=== PATIENT | male | born 1970 | race Caucasian/White ===

== ENCOUNTER 2018-06-26 08:24 | Emergency (ER) | payer BC, OTHER ==
[2018-06-26 08:31] VITALS: BP 149/88; PULSE 88; RESP 18; TEMP 97.6
[2018-06-26] MEDS ORDERED: KETOROLAC 60 MG/2 ML VIAL IM STA (08:45)
--- NOTE | 2018-06-26 08:46 | ED ---
General Adult HPI - General Chief complaint: Back Pain/Injury Stated complaint: back injury Time Seen by Provider: 06/26/18 08:33 Source: patient, RN notes reviewed Mode of arrival: ambulatory Limitations: no limitations - History of Present Illness Initial comments: Patient 47-year-old male presented to the emergency room today with chief complaint of increased lower back pain that began 3 or 4 days ago when he was at work. He states that he was dumping a 5 gallon bucket of chemical. He states that after he did this he felt pain in the right side and lower back. He denies any lumbar radiculopathy, saddle anesthesia, bowel or bladder incontinence retention. Patient does admit that the pain is worse when he is trying to get out of bed or going from a sitting to standing position. Patient does admit that he tried anti-inflammatories at home with some relief. Patient denies any other complaints or symptoms. Patient denies any recent fever, chills , shortness of breath, chest pain, abdominal pain, nausea or vomiting, numbness or tingling, dysuria or hematuria, headaches or visual changes, or any other complaints. - Related Data Home Medications Medication Instructions Recorded Confirmed Allopurinol [Zyloprim] 100 mg PO DAILY 11/24/13 11/26/13 Previous Rx's Medication Instructions Recorded Naproxen Sodium [Anaprox Ds] 550 mg PO Q12HR #15 tab 11/24/13 Sulfamethoxazole/Trimethoprim 2 tab PO Q12H #40 tab 11/24/13 [Bactrim DS 800-160 mg] Sulfamethox-Tmp 800-160Mg [Bactrim 2 each PO Q12HR #28 tab 11/26/13 DS 800-160 mg] Cyclobenzaprine [Flexeril] 10 mg PO TID #20 tab 06/26/18 Ibuprofen [Motrin] 600 mg PO Q6HR PRN #40 day 06/26/18 Allergies Allergy/AdvReac Type Severity Reaction Status Date / Time No Known Allergies Allergy Verified 06/26/18 08:30 Review of Systems ROS Statement: Those systems with pertinent positive or pertinent negative responses have been documented in the HPI. ROS Other: All systems not noted in ROS Statement are negative. Past Medical History Additional Past Medical History / Comment(s): gouty arthritis History of Any Multi-Drug Resistant Organisms: None Reported Past Surgical History: No Surgical Hx Reported Past Psychological History: No Psychological Hx Reported Smoking Status: Current every day smoker Past Alcohol Use History: Occasional Past Drug Use History: None Reported General Exam - General Exam Comments Initial Comments: General: The patient is awake and alert, in no distress, and does not appear acutely ill. Neck: The neck is supple Cardiovascular: There is a regular rate and rhythm. No murmur, rub or gallop is appreciated. Respiratory: Lungs are clear to auscultation, respirations are non-labored, breath sounds are equal. No wheezes, stridor, rales, or rhonchi. Musculoskeletal: Normal ROM. Normal appearance of the thoracic lumbar spine with no step-off or deformity. Patient does have mild tenderness paravertebrally to the right side of the lumbar spine from L2 to L5. Strength 5 /5. Sensation intact. Pulses equal bilaterally 2+. Neurological: A&O x 3. CN II-XII intact, There are no obvious motor or sensory deficits. Coordination appears grossly intact. Speech is normal. Skin: Skin is warm and dry and no rashes or lesions are noted. Psychiatric: Cooperative, appropriate mood & affect, normal judgment. Limitations: no limitations Course Vital Signs 06/26/18 08:28 Temperature 97.6 F Pulse Rate 88 Respiratory 18 Rate Blood Pressure 149/88 O2 Sat by Pulse 98 Oximetry Medical Decision Making - Medical Decision Making 47-year-old male presenting to the emergency room today with chief complaint of right-sided lower back pain that began after lifting a 5 gallon bucket at work 3 -4 days ago. Does admit that pains been reproduced with certain movements. Patient has no bowel or bladder incontinence retention, saddle anesthesia, lumbar radiculopathy. Patient will be continued on anti-inflammatories and prescribed a muscle relaxer. He is advised that muscle relaxers may make him drowsy. Advised to follow family physician over the next week. Advised return if any symptoms increase or worsen. Disposition Clinical Impression: Acute low back pain Disposition: HOME SELF-CARE Condition: Good Instructions: Acute Low Back Pain (ED) Additional Instructions: Please use medication as discussed. Please be aware muscle relaxer may make you drowsy. Please follow-up with family doctor in the next 2 days of symptoms have not improved. Please return to emergency room if the symptoms increase or worsen or for any other concerns. Prescriptions: Cyclobenzaprine [Flexeril] 10 mg PO TID #20 tab Ibuprofen [Motrin] 600 mg PO Q6HR PRN #40 day PRN Reason: Pain Is patient prescribed a controlled substance at d/c from ED?: No Referrals: None,Stated [Primary Care Provider] - 1-2 days Time of Disposition: 08:45
== END 2018-06-26 09:05 | disposition home or self-care (01) ==
LOC: EC 08:24
DX: M54.5 Low back pain (principal); M10.9 Gout, unspecified; F17.200 Nicotine dependence, unspecified, uncomplicated; Z79.899 Other long term (current) drug therapy
CPT/HCPCS: 99283; 96372; J1885

== ENCOUNTER 2018-07-01 05:23 | Emergency (ER) | payer OTHER ==
[2018-07-01 06:03] VITALS: TEMP 97.5
--- NOTE | 2018-07-01 06:05 | ED ---
Back Pain HPI - General Chief Complaint: Back Pain/Injury Stated Complaint: Back Injury, [facility] Time Seen by Provider: 07/01/18 05:37 Source: patient Limitations: no limitations - History of Present Illness Initial Comments: is a pleasant 47-year-old male who returns to the emergency department this morning for reevaluation of back pain. Uzma was seen and evaluated last week for low back pain that began after lifting a 5 gallon bucket of chemicals at work. That time the patient was diagnosed with muscle strain he was prescribed Flexeril and Motrin and discharged home. Patient reports that he didn't work on Friday but has been back to work for 2 days he is again been lifting 5 gallon bucket of chemicals that he is required toe lift at work. He reports that his back pain has been worsening. Patient reports he has not been taking the Flexeril because it makes him tired. He has been combined with ibuprofen but doesn't feels been helping. Patient reports his back feels stiff in the morning when he wakes up, it seems to improve throughout the day but worsened with any heavy lifting. Patient reports he feels tightness down his right leg. He denies any fevers, chills, chest pain or shortness breath. Patient denies any bowel or bladder incontinence or retention. He denies any fevers, IV drug use or history of cancer. He denies any weakness or tingling in the extremities. - Related Data Home Medications Medication Instructions Recorded Confirmed Ibuprofen [Motrin Ib] 400 mg PO Q6H PRN 06/26/18 06/26/18 Previous Rx's Medication Instructions Recorded Cyclobenzaprine [Flexeril] 10 mg PO TID #20 tab 06/26/18 RX: Ibuprofen [Motrin] 600 mg PO Q6HR PRN #40 day 06/26/18 Allergies Allergy/AdvReac Type Severity Reaction Status Date / Time No Known Allergies Allergy Verified 07/01/18 05:33 Review of Systems ROS Statement: Those systems with pertinent positive or pertinent negative responses have been documented in the HPI. ROS Other: All systems not noted in ROS Statement are negative. Past Medical History Additional Past Medical History / Comment(s): gouty arthritis, History of Any Multi-Drug Resistant Organisms: None Reported Past Surgical History: No Surgical Hx Reported Past Psychological History: No Psychological Hx Reported Smoking Status: Current every day smoker Past Alcohol Use History: Occasional Past Drug Use History: None Reported General Exam - General Exam Comments Initial Comments: Physical Exam GENERAL: Patient is well-developed and well-nourished. Patient is nontoxic and well- hydrated and is in no distress. HENT: Normocephalic, Atraumatic. EYES: PERRL, EOMI PULMONARY: Unlabored respirations. No audible rales rhonchi or wheezing was noted. CARDIOVASCULAR: There is a regular rate and rhythm without any murmurs gallops or rubs. ABDOMEN: Soft and nontender with normal bowel sounds. SKIN: Skin is clear with no lesions or rashes and otherwise unremarkable. : Deferred NEUROLOGIC: Patient is alert and oriented x3. Moving all extremities spontaneously Normal patellar and Achilles reflexes bilaterally Will strength and sensation of the bilateral lower extremities MUSCULOSKELETAL: Normal extremities with adequate strength and full range of motion. No lower extremity swelling or edema. No calf tenderness. PSYCHIATRIC: Normal psychiatric evaluation. Limitations: no limitations Limitations: no limitations Course Vital Signs 07/01/18 07/01/18 05:30 05:56 Temperature 98.0 F 97.5 F L Pulse Rate 80 80 Respiratory 17 16 Rate Blood Pressure 150/87 159/105 O2 Sat by Pulse 98 97 Oximetry Medical Decision Making - Medical Decision Making Patient was seen and evaluated history was obtained from patient and signed history and physical exam are consistent with muscle strain of the lumbar spine however patient is concerned and requesting at x-ray I advised patient to x-ray will not reveal any nerve impingement or muscle tears however we will proceed with x-ray X-ray with no acute findings were discussed with the patient who expresses relief, requests a work note for 2 days work note was provided neck for Patient was encouraged to continue taking NSAIDs, continue moderate activity without any heavy lifting follow-up with primary care for referral to physical therapy as well as referral to orthopedics, patient was given Dr. Blake's contact information for follow-up. Disposition Clinical Impression: Strain of lumbar region Disposition: HOME SELF-CARE Condition: Stable Instructions: Acute Low Back Pain (ED), Chronic Back Pain (ED) Is patient prescribed a controlled substance at d/c from ED?: No Referrals: None,Stated [Primary Care Provider] - 1-2 days Tatyana Blake DO [Doctor of Osteopathic Medicine] - 1-2 days
[2018-07-01] MEDS ORDERED: KETOROLAC 30 MG/ML 1 ML VIAL IM STA (06:07)
--- NOTE | 2018-07-01 06:41 | XR ---
EXAMINATION TYPE: XR lumbar spine 2 or 3V DATE OF EXAM: 07/01/2018 COMPARISON: NONE HISTORY: Back pain TECHNIQUE: 3 views FINDINGS: The lumbar vertebra have normal alignment. Posterior elements are intact. Sacroiliac joints appear normal. IMPRESSION: Negative lumbar spine exam. No fracture.
[2018-07-01 07:03] VITALS: BP 162/82; PULSE 93; RESP 18
== END 2018-07-01 07:02 | disposition home or self-care (01) ==
LOC: EC 05:23
DX: S39.012A Strain of muscle, fascia and tendon of lower back, initial encounter (principal); F17.200 Nicotine dependence, unspecified, uncomplicated; X50.0XXA Overexertion from strenuous movement or load, initial encounter; Y92.69 Other specified industrial and construction area as the place of occurrence of the external cause; Y99.0 Civilian activity done for income or pay
CPT/HCPCS: 72100; 99283; 96372; J1885

== ENCOUNTER 2019-02-04 09:58 | Emergency (ER) | payer OTHER ==
[2019-02-04 10:01] VITALS: RESP 18
[2019-02-04] MEDS: PROPARACAINE 0.5% OPHTH DROPS 15 ML BTL LEFT EYE STA ×2 (10:13→10:16)
--- NOTE | 2019-02-04 10:25 | ED ---
Eye Problem HPI - General Chief complaint: Eye Problems Stated complaint: Eye Problems Time Seen by Provider: 02/04/19 10:04 Source: patient Mode of arrival: ambulatory Limitations: no limitations - History of Present Illness Initial comments: Patient is a 48-year-old male presenting to the emergency department with a chief complaint of eye pain. Patient reports he woke up this morning and noticed right eye discomfort and redness. Patient denies any discharge or difficulty opening his eye. Patient denies blurry vision, nausea or headaches. Patient denies pain with extraocular movements. Patient denies itchiness. Patient reports he recently went swimming in a pool. Patient denies a history of glaucoma or cataracts. Patient denies any trauma today. Patient does not wear contacts. Patient reports taking [id number] analgesics to alleviate his symptoms. - Related Data Previous Rx's Medication Instructions Recorded Polymyxin B-Trimeth Sulf Ophth 1 drops BOTH EYES Q4H #1 bottle 02/04/19 [Polytrim Opthalmic] Allergies Allergy/AdvReac Type Severity Reaction Status Date / Time No Known Allergies Allergy Verified 02/04/19 10:22 Review of Systems ROS Statement: Those systems with pertinent positive or pertinent negative responses have been documented in the HPI. ROS Other: All systems not noted in ROS Statement are negative. Past Medical History Additional Past Medical History / Comment(s): gouty arthritis, History of Any Multi-Drug Resistant Organisms: None Reported Past Surgical History: No Surgical Hx Reported Past Psychological History: No Psychological Hx Reported Smoking Status: Current every day smoker Past Alcohol Use History: Occasional Past Drug Use History: None Reported General Exam Limitations: no limitations General appearance: alert, in no apparent distress Head exam: Present: atraumatic, normocephalic, normal inspection Eye exam: Present: normal appearance, PERRL, EOMI, conjunctival injection, other (No corneal ulcers, foreign bodies or abrasions noted on fluorescence stain.). Absent: nystagmus, periorbital tenderness Pupils: Present: normal accommodation ENT exam: Present: normal exam, normal oropharynx, mucous membranes moist, TM's normal bilaterally, normal external ear exam Neck exam: Present: normal inspection, full ROM Respiratory exam: Present: normal lung sounds bilaterally Cardiovascular Exam: Present: regular rate, normal rhythm Extremities exam: Present: normal inspection, full ROM Back exam: Present: normal inspection, full ROM Neurological exam: Present: alert, oriented X3 Psychiatric exam: Present: normal affect, normal mood Skin exam: Present: warm, intact, normal color Course Vital Signs 02/04/19 10:00 Temperature 97.9 F Pulse Rate 68 Respiratory 18 Rate Blood Pressure 161/92 O2 Sat by Pulse 98 Oximetry Medical Decision Making - Medical Decision Making Patient is a 48-year-old male presents emergency Department with a chief complaint of eye pain. Patient reports recently swimming in a pool and when he woke up this morning he noticed eye discomfort and redness in his right eye. Patient denies pain with extraocular movements or blurred vision. Based on physical examination suspect the patient to have developed conjunctivitis. Although patient has no mucopurulent discharge at this time, so going to treat the patient for possible bacterial pathology. eye pressure using to tonometer is 19 mmHg. Patient will be discharged with opthalamic antibiotic drops. Patient advised to follow-up with ophthalmology if symptoms not improved. Patient advised not to touch his affected eye. Strict return parameters were thoroughly discussed patient was understanding and agreeable. Case discussed with physician. Disposition Clinical Impression: Conjunctivitis, right eye Disposition: HOME SELF-CARE Condition: Stable Instructions (If sedation given, give patient instructions): Eye Wash (Into the eye) Additional Instructions: Please avoid touching affected eye. Please take prescribed medication as directed. Please follow up with ophthalmology if symptoms not improved. Is patient prescribed a controlled substance at d/c from ED?: No Referrals: Alvino Osorio MD [STAFF PHYSICIAN] - 1-2 days Time of Disposition: 10:40
[2019-02-04 11:34] VITALS: BP 143/98; PULSE 75; TEMP 98.2
== END 2019-02-04 11:34 | disposition home or self-care (01) ==
LOC: EC 09:58
DX: H10.9 Unspecified conjunctivitis (principal); F17.200 Nicotine dependence, unspecified, uncomplicated
CPT/HCPCS: 99283